=== PATIENT | female | born 1990 | race Caucasian/White ===

== ENCOUNTER 2025-11-27 09:10 | Emergency (ER) | payer SELFPAY ==
[~2025-11-27] VITALS: Ht 165.1 cm; Wt 85.0 kg
--- NOTE | 2025-11-27 09:32 | ED.PDOC ---
Altered Mental Status HPI Comments 35-year-old female presents to the ED via EMS under Blanca Christine after being found in front of a grocery store naked using methamphetamine. EMS attempted to communicate with the patient although patient is agitated in scratching her body profusely. On ED arrival, patient continues to present scratching all over her body in his not answering any questions at this time. No further information obtained at this time Chief Complaint: ALOC Time Seen by MD: 09:14 Reviewed Notes: Nurses Notes, Athletics Director Notes, Medications, Allergies Allergies: Coded Allergies: UNOBTAINABLE (Unverified , 11/27/25) Information Source: Emergency Med Personnel Mode of Arrival: EMS Severity: Unable to Care for Self Timing: Hours Duration: Since onset Quality: Other (patient is altered ) Recent: Other Associated Signs and Symptoms: Other Past Medical History PAST MEDICAL HISTORY: Unobtainable Surgical History: Unobtainable PERIOPERATIVE EDUCATOR History: Unobtainable Family History Family History: Unobtainable Social History Smoker: Unobtainable Alcohol: Unobtainable Drugs: Unobtainable Lives In: Unobtainable Unable to Obtain due to: Altered Mental Status Physical Exam General Appearance: Moderate Distress HEENT: Normal ENT Inspection, Pharynx Normal, TMs Normal Neck: Full Range of Motion, Non-Tender, Normal, Normal Inspection Respiratory: Chest Non-Tender, Lungs Clear, No Accessory Muscle Use, No Res piratory Distress, Normal Breath Sounds Cardiovascular: No Edema, No JVD, No Murmur, No Gallop, Normal Peripheral Pulses, Regular Rate/Rhythm Breast Exam: Deferred Gastrointestinal: No Organomegaly, Non Tender, No Pulsatile Mass, Normal Bowel Sounds, Soft Genitalia: Deferred Pelvic: Deferred Rectal: Deferred Extremities: No calf tenderness, Normal range of motion, No pedal edema Musculoskeletal : Apperance: Normal Neurologic: Disoriented Cerebellar Function: NOT DONE Reflexes: NOT DONE Skin: Normal Color Peripheral Pulses: 3+ Radial (R), 3+ Radial (L) Lymphatic: No Adenopathy Was a procedure done? Was a procedure done?: No Differential Diagnosis (ALOC) Differential Diagnosis: Dehydration, Drug Overdose, ETOH Intoxication X-Ray, Labs, Meds, VS Vital Signs Date Time Temp Pulse Resp B/P (MAP) Pulse Ox O2 Delivery O2 Flow Rate FiO2 11/27/25 10:56 20 95 Room Air* 0 21 11/27/25 10:56 98.7 114 18 145/91 (109) 95 98.7 11/27/25 09:24 97.9 100 20 140/100 100 97.9 Lab Test 11/27/25 10:00 Range/Units Beta HCG, Quantitative < 1.5 L 1.5-4.2 mIU/mL Plasma/Serum Blood Alcohol < 3.0 <10 mg/dL Current Medications Medications (Trade) Dose Ordered Sig/Fred Route Start Time Stop Time Status Last Admin Lorazepam (Ativan Inj) 0.5 mg ONCE ONCE IM 11/27/25 11:15 11/27/25 11:16 DC 11/27/25 11:20 Diphenhydramine HCl (Benadryl Injection) 50 mg ONCE ONCE IM 11/27/25 11:15 11/27/25 11:16 DC 11/27/25 11:20 Patient disoriented. Possible drug use. Found on the street. Moving all extremities. Was given Ativan. Was given Benadryl. CT scan of the head. No injuries. Continue monitoring. Time of 1ST Reevaluation: 09:31 Reevaluation 1ST: Unchanged Patient Education/Counseling: Other (patient is altered ) Family Education/Counseling: No Family Present SEPSIS Sepsis Screen Date sepsis recognized/suspect: Nov 27, 2025 Time Sepsis recognized/suspect: 909 Recent Procedure: No On Antibiotic Therapy: No Respiratory Rate >20: No Heart Rate >90: Yes Temp<36 C (96.8 F) or >38.3 C: No SBP <90 or MAP <65 mmHG: No New Acute Mental Status Change: No Is the patient on CPAP, BIPAP,: No Physician Orders Urinalysis (11/27/25 09:39) Head Without Contrast (11/27/25 09:39) Drug Screen (11/27/25 09:39) Segmental Paving Supervisor (11/27/25 09:39) Vital Signs Date Time Temp Pulse Resp B/P (MAP) Pulse Ox O2 Delivery O2 Flow Rate FiO2 11/27/25 10:56 20 95 Room Air* 0 21 11/27/25 10:56 98.7 114 18 145/91 (109) 95 98.7 11/27/25 09:24 97.9 100 20 140/100 100 97.9 Medications Medications Dose Ordered Sig/Fred Route Start Time Stop Time Status Last Admin Dose Admin Diphenhydramine HCl 50 mg ONCE ONCE IM 11/27/25 11:15 11/27/25 11:16 DC 11/27/25 11:20 Lorazepam 0.5 mg ONCE ONCE IM 11/27/25 11:15 11/27/25 11:16 DC 11/27/25 11:20 Departure 1 Departure Time of Disposition: 12:03 Impression: Primary Impression: Metabolic encephalopathy Disposition: 30 STILL A PATIENT Condition: Good Critical Care Note Critical Care Time?: Yes (90 min-critical care time only) Stability Stability form required: No I personally scribed for ELAINA MELGAR MD ([email or web address]) on 11/27/25 at 09:32. Electronically submitted by Rachael Ruiz ([facility]). ELAINA MELGAR MD Nov 27, 2025 09:32
[2025-11-27] MEDS ORDERED: SODIUM CHLORIDE 0.9% 1,000 ML IV ONE (09:45)
[2025-11-27 10:56] VITALS: RESP 20; O2SAT 95
[2025-11-27] MEDS: LORazepam 2MG/ML-1ML VIAL IM ONE (11:20)
[2025-11-27] MEDS: LORazepam 2MG/ML-1ML VIAL ONE (11:20)
[2025-11-27] MEDS: diphenhydrAMINE HCL 50 MG/1 ML VL ONE (11:20)
[2025-11-27] MEDS: diphenhydrAMINE HCL 50 MG/1 ML VL IM ONE (11:20)
[2025-11-27 12:00] VITALS: RESP 16; TEMP 98.7; O2SAT 99
[2025-11-27 13:41] LABS: Urine Protein, UAD 1+ (Negative)
[2025-11-27 13:52] LABS: Cannabinoid Screen, Urine Neg (NEGATIVE)
[2025-11-27 13:53] LABS: Amphetamine Screen, Urine Pos (NEGATIVE); Barbiturate Scree,Urine Neg (NEGATIVE); Benzodiazephine Screen, Urine Neg (NEGATIVE); Cocaine Screen, Urine Neg (NEGATIVE); Opiate Scree,Urine Neg (NEGATIVE); Phencyclidine Screen, Urine Neg (NEGATIVE)
[2025-11-27 16:00] VITALS: BP 151/90; PULSE 100
== END 2025-11-27 16:31 | disposition left against medical advice (07) ==
LOC: ER 09:10 → EDBD 09:10 → ER 16:31
DX: G93.41 Metabolic encephalopathy (principal); F15.90 Other stimulant use, unspecified, uncomplicated; F17.200 Nicotine dependence, unspecified, uncomplicated; Z79.899 Other long term (current) drug therapy
CPT/HCPCS: 36415; 80307; 80320; 81001; 84702; 96372; 99284; J1200; J2060

== ENCOUNTER 2025-11-27 20:10 | Emergency (ER) | payer SELFPAY ==
[~2025-11-27] VITALS: Ht 165.1 cm; Wt 86.0 kg
[2025-11-27 20:20] VITALS: BP 153/98; PULSE 94; RESP 16; TEMP 97.9; O2SAT 98
== END 2025-11-28 02:40 | disposition left against medical advice (07) ==
LOC: ER 20:10 → EDSEX 20:10 → EDBD 20:10 → ER 11-28 02:40
DX: Z02.89 Encounter for other administrative examinations (principal); Z53.21 Procedure and treatment not carried out due to patient leaving prior to being seen by health care provider